=== PATIENT | male | born 1955 | race Caucasian/White ===

== ENCOUNTER 2021-12-01 14:31 | Emergency (ER) | payer OTHER ==
[2021-12-01] MEDS ORDERED: Bupivacaine 0.5% 10 ML SDV INJECT ONE (14:46)
[2021-12-01] MEDS ORDERED: Bacitracin Oint 1 GM U/D Packet TOP ONE (15:46)
== END 2021-12-01 16:20 | disposition home or self-care (01) ==
LOC: JP.ED 14:31
DX: S61.310A Laceration without foreign body of right index finger with damage to nail, initial encounter (principal); Z79.899 Other long term (current) drug therapy; Z79.82 Long term (current) use of aspirin; W01.0XXA Fall on same level from slipping, tripping and stumbling without subsequent striking against object, initial encounter
CPT/HCPCS: 11730; 12002; 73140-26-F6; 73140-F6; 99281; 99283-25; J3490

== ENCOUNTER 2022-02-01 20:53 | Emergency (ER) | payer OTHER ==
[2022-02-01] MEDS ORDERED: Lidocaine 1% with EPINEPHrine 1:100,000 50 ML MDV SUBCUT ONE (21:23)
[2022-02-01] MEDS ORDERED: Bacitracin Oint 1 GM U/D Packet TOP ONE (22:16)
== END 2022-02-01 22:59 | disposition home or self-care (01) ==
LOC: JP.ED 20:53
DX: S81.811A Laceration without foreign body, right lower leg, initial encounter (principal); Z79.52 Long term (current) use of systemic steroids; Z79.899 Other long term (current) drug therapy; Z79.82 Long term (current) use of aspirin; X50.0XXA Overexertion from strenuous movement or load, initial encounter
CPT/HCPCS: 12004; 13121; 13122; 99281; 99282